=== PATIENT | female | born 1995 | race Caucasian/White ===

== ENCOUNTER → 2018-04-04 | Outpatient (CLI) | payer BC ==
[~2018-04-04] MED LIST: ETON68IM SQ; ISOT10CA; NORG1TAB74 PO; SERT-181 PO; SERT-184 PO; steroid eye drops
[2018-04-04 11:51] LABS: PLATELET COUNT, AUTOMATED 285 K/uL (150-450)
== END ==
LOC: LAB 11:31
PROVIDERS: ATTEND Emergency Medicine
DX: F32.9 Major depressive disorder, single episode, unspecified (principal)
CPT/HCPCS: 36415; 82306; 82310; 82374; 82435; 82565; 82607; 82947; 84132; 84295; 84443; 84520; 85025